=== PATIENT | female | born 1965 | race Caucasian/White ===

== ENCOUNTER 2023-03-10 10:29 | Emergency (ER) | payer OTHER, MEDICAID ==
[~2023-03-10] VITALS: Ht 170.2 cm; Wt 68.0 kg
[2023-03-10] MEDS ORDERED: SODIUM CHLORIDE 0.9% 1,000 ML IV ONE (10:45)
[2023-03-10] MEDS ORDERED: MORPHINE SULFATE 4 MG/ML CPJ (NOT FOR IM USE) IV ONE ×2 (11:00→20:15)
[2023-03-10 11:23] LABS: BASOPHILS % 0.6 % (0.0-2.0); HEMATOCRIT. 39.9 % (36.0-48.0); HEMOGLOBIN. 14.1 g/dL (12.0-16.0); LYMPHOCYTES % 24.5 % (20.0-50.0); MEAN CORPUSCULAR HEMOGLOBIN 29.6 pg (28.0-32.0); MEAN CORPUSCULAR VOLUME 83.9 fL (81.0-99.0); MEAN PLATELET VOLUME 9.1 fl (7.4-10.4); MONOCYTES % 3.5 % (2.0-8.0); NEUTROPHILS % 70.4 % (40.0-76.0); PLATELET 307 x1000/uL (130-400); RED BLOOD CELL COUNT 4.76 mill/uL (4.2-5.4); RED CELL DISTRIBUTION WIDTH 13.1 % (11.6-14.6)
[2023-03-10 11:30] LABS: CHLORIDE 101 mEq/L (98-107)
[2023-03-10 11:40] LABS: BETA HYDROXYBUTYRATE 4.3 mMol/L (0.0-0.3)
[2023-03-10] MEDS ORDERED: MORPHINE SULFATE 4 MG/ML CPJ (NOT FOR IM USE) IV NR (13:45)
[2023-03-10] MEDS ORDERED: METOCLOPRAMIDE HCL 10MG/2ML VIAL IV NR (13:45)
[2023-03-10] MEDS ORDERED: ONDANSETRON HCL 4MG/2ML INJ IV ONE (20:30)
[2023-03-10 20:49] VITALS: BP 160/91
== END 2023-03-10 21:15 | disposition short-term general hospital (02) ==
LOC: ER 10:29 → CANBEDREQ 03-12 19:54
DX: E11.43 Type 2 diabetes mellitus with diabetic autonomic (poly)neuropathy (principal); I10 Essential (primary) hypertension; K31.84 Gastroparesis; Z88.6 Allergy status to analgesic agent; Z20.822 Contact with and (suspected) exposure to COVID-19
CPT/HCPCS: 36415; 74176; 80053; 82010; 82962; 83690; 85025; 87426; 96361; 96374; 96375; 96376; 99285; C9803; J2270; J2405; J2765; J7030